=== PATIENT | male | born 1965 | race Caucasian/White ===

== ENCOUNTER 2020-02-04 16:11 | Emergency (ER) | payer OTHER, SELFPAY ==
--- NOTE | ~2020-02-04 | XR_ITS ---
EXAMINATION: XR hip RT min 3V w AP pelvis EXAM DATE: 02/04/2020 17:07 INDICATION: Initial encounter following injury, with pain of the pelvis, right hip. TECHNIQUE: Right hip frontal, crosstable lateral and 'frog-leg' projections for interpretation. Front al projection pelvis. There is no prior study for comparison. FINDINGS: Smooth right hip femoral head contour, no radiographic evidence of avascular necrosis. The re is mild symmetric bilateral hip primary osteoarthritis. There are no acute fractures or dislocatio ns identified. There is no subcutaneous gas. The soft tissue is unremarkable. There are no radiop aque foreign bodies. IMPRESSION: 1. Pelvis, right hip exam without acute osseous findings. 2. Mild hip osteoarthritis. Reviewed, dictated and finalized at location A.
[2020-02-04 16:15] VITALS: BP 123/74; PULSE 77; RESP 18; TEMP 37.4; O2SAT 98
--- NOTE | 2020-02-04 16:57 | ED.LOWEXIN ---
HPI - Extremity Injury (Lower) General Chief Complaint: Extremity Injury, Lower Stated Complaint: Hip pain Time Seen by Provider: 02/04/20 16:31 Source: patient Mode of arrival: ambulatory Limitations: no limitations History of Present Illness HPI Narrative: This is a 54-year-old male that presents the emergency department for right hip pain after an injury today. Reports he was pushing a lawnmower back onto a truck and all of a sudden felt a pop in his right hip. Reports since he has had increasing pain in this area. Reports he took ibuprofen this morning with little relief. Denies back pain, decreased range of motion, numbness, or weakness. Related Data Home Medications Medication Instructions Recorded Confirmed alirocumab [Praluent Pen] 75 mg SUBCUT MONTHLY 08/25/19 11/30/19 aspirin 81 mg DAILY 08/25/19 11/30/19 atorvastatin 80 mg DAILY 08/25/19 11/30/19 ezetimibe 10 mg DAILY 08/25/19 11/30/19 metoprolol tartrate 25 mg DAILY 08/25/19 11/30/19 Allergies Allergy/AdvReac Type Severity Reaction Status Date / Time No Known Allergies Allergy Verified 02/04/20 17:51 Review of Systems Review of Systems: Narrative: CONSTITUTIONAL: Denies fever MUSCULOSKELETAL: Reports joint pain and myalgia. Denies back pain NEUROLOGIC: Denies numbness, or weakness. All systems reviewed & are unremarkable except as noted in HPI and below PMFSH Past Medical History Medical History (Updated 02/04/20 @ 18:20 by Natalie Morton PA-C) Allergies Asthma BMI 28.0-28.9,adult Colon cancer screening Coronary artery disease Heart disease Hyperlipidemia LDL goal <70 Loud snoring Mild asthma Nocturnal dyspnea Prostate cancer screening Seasonal allergies Sleep apnea Surgical History Surgical History (Updated 11/30/19 @ 18:37 by Russel Rangel PA-C) H/O four vessel coronary artery bypass graft History of foot surgery History of open heart surgery Family History Family History (Updated 11/30/19 @ 15:55 by Dread Crowder CMA) Father Heart disease Acute myocardial infarction Social History Social History (Updated 11/30/19 @ 15:55 by Dread Crowder CMA) Smoking status: Never smoker Alcohol intake: current Drinks per week: 6 Substance use: never Gender identity (if verbalized by the patient): Male Exam Narrative: Exam Narrative: GENERAL: Well-appearing, well-nourished, and in no acute distress. HEAD: Normocephalic, atraumatic. EYES: EOMI. CHEST: Clear to auscultation. No respiratory distress. No wheezes rales or rhonchi HEART: Regular rate and rhythm. No murmur heard. Normal peripheral pulses. EXTREMITIES: Normal range of motion. No edema or obvious deformity. Strength equal in bilateral lower extremities (5/5). Tender palpation of the right lateral hip musculature SKIN: Warm, dry, no rash. NEURO: No focal deficits. Alert and oriented x3. PSYCH: Normal mood and affect Course Vital Signs Vital signs: Vital Signs Temperature 99.4 F 02/04/20 16:15 Pulse Rate 77 02/04/20 16:15 Respiratory Rate 18 02/04/20 16:15 Blood Pressure 123/74 02/04/20 16:15 Pulse Oximetry 98 02/04/20 16:15 Temperature 99.4 F 02/04/20 16:15 Pulse Rate 77 02/04/20 16:15 Respiratory Rate 18 02/04/20 16:15 Blood Pressure 123/74 02/04/20 16:15 Pulse Oximetry 98 02/04/20 16:15 MDM - Extremity Injury (Lower) MDM Narrative Medical decision making narrative: Patient presents the emergency department for right hip pain after an injury today. Right hip/pelvis x-ray is without acute findings. Patient is able to ambulate. He is tender to palpation of the tensor fasciae [place]. Patient was instructed on care of hip strain. He was given crutches for comfort. He is to follow up with orthopedics. He was given warnings to return to the ER Imaging Data Radiologist's impression: ITS Impressions Hip/Pelvis X-Ray 02/04/20 17:17 IMPRESSION: 1. Pelvis, right hip exam without acute osseous f
[2020-02-04] MEDS: KETOROLAC (*BKC) 60 MG/2 ML VIAL IM (17:10)
--- NOTE | 2020-02-04 18:35 | PC.NURSE ---
Patient was provided with hands on crutch training. He was able to properly return demonstrate safe use of the crutches. He had no questions for me regarding crutch training.
[2020-02-04 18:50] VITALS: BP 131/69; PULSE 79; RESP 16; TEMP 36.7; O2SAT 99
== END 2020-02-04 18:50 | disposition home or self-care (01) ==
PROVIDERS: Emergency Provider Emergency Medicine; PCP Physician Assistant
DX: S76.011A Strain of muscle, fascia and tendon of right hip, initial encounter (principal); J45.909 Unspecified asthma, uncomplicated; I25.10 Atherosclerotic heart disease of native coronary artery without angina pectoris; E78.5 Hyperlipidemia, unspecified; G47.30 Sleep apnea, unspecified; M16.11 Unilateral primary osteoarthritis, right hip; X50.9XXA Other and unspecified overexertion or strenuous movements or postures, initial encounter
CPT/HCPCS: 73502; 96372; 99283; J1885

== ENCOUNTER 2020-09-29 15:47 | Emergency (ER) | payer OTHER, SELFPAY ==
--- NOTE | ~2020-09-29 | XR_ITS ---
XR chest 2V DATE: 09/29/2020 16:15 INDICATION: Chest pain. Shortness of breath, dizziness. TECHNIQUE: PA and lateral views COMPARISON: 09/17/2018 AP and lateral chest FINDINGS: Status post sternotomy and probable coronary artery bypass graft surgery. Normal heart size . No hilar or mediastinal enlargement. No pulmonary infiltrate or consolidation, pleural effusion or pulmonary vascular congestion or pneumo thorax. IMPRESSION: Status post sternotomy No active cardiopulmonary disease Reviewed, dictated and finalized at location A. T TAILER
[2020-09-29 15:55] VITALS: BP 176/94; PULSE 76; RESP 18; TEMP 36.8; O2SAT 97
--- NOTE | 2020-09-29 15:55 | ECG_ITS ---
Measurements Intervals [place] Rate: 76 P: 20 MS: 116 QRS: 92 QRSD: 100 T: 37 QT: 376 QTc: 424 Interpretive Statements SINUS RHYTHM WITH SHORT MS INTERVAL VENTRICULAR PREMATURE COMPLEX RIGHT AXIS DEVIATION INCOMPLETE RIGHT BUNDLE BRANCH BLOCK BASELINE ARTIFACT- I, III, AVR, AVL BORDERLINE ECG Electronically Signed On 09-29-2020 16:07:46 POLICY WRITER by Maninder Foster D.O.
[2020-09-29 16:04] VITALS: PULSE 76
[2020-09-29 16:07] LABS: Basophils Absolute Auto 0.1 K/mm3 (0.0-0.1); Basophils Percent Auto 0.6 % (0.2-1.2); Eosinophils Absolute Auto 0.2 K/mm3 (0-0.3); Eosinophils Percent Auto 2.4 % (0-4.4); Hematocrit 47.2 % (42.0-52.0); Hemoglobin 16.1 g/dL (14.0-18.0); Immature Granulocyte Absolute 0.03 K/mm3 (0.00-0.031); Immature Granulocyte Percent A 0.4 % (0-0.5); Lymphocytes Absolute Auto 2.44 K/mm3 (0.9-3.2); Mean Corpuscular HGB Conc 34.1 g/dl (32-36); Mean Corpuscular Hemoglobin 30.8 pg (26-34); Mean Corpuscular Volume 90.2 fl (80-100); Mean Platelet Volume 10.2 fl (7.4-10.4); Monocytes Absolute Auto 0.8 K/mm3 (0.1-0.6); Monocytes Percent Auto 10.4 % (2.6-8.5); Neutrophils Absolute Auto 4.3 K/mm3 (1.3-6.7); Neutrophils Percent Auto 55.2 % (45.5-73.1); Platelet Count Result 198 k/mm3 (150-375); Red Blood Count 5.23 M/mm3 (4.6-6.20); Red Cell Distribution Width 14.3 % (11.5-14.5); White Blood Count 7.9 K/mm3 (4.5-10.0)
[2020-09-29 16:17] LABS: INR 0.9; Prothrombin Time 13.2 Seconds (11.1-14.7)
[2020-09-29 16:19] LABS: Anion Gap 5 mmol/L (8-16); Blood Urea Nitrogen 19 mg/dL (9-20); Calcium 8.8 mg/dL (8.4-10.2); Carbon Dioxide 22 mmol/L (22-30); Chloride 110 mmol/L (98-107); Estimated CRCL calculation 92 ml/min; Estimated Glomerular Filt Rate > 60; Glucose 107 mg/dL (75-110); Potassium 4.4 mmol/L (3.4-5.0); Sodium 137 mmol/L (137-145)
[2020-09-29 16:31] LABS: Troponin I < 0.012 ng/mL (0.000-0.034)
[2020-09-29 16:50] VITALS: BP 124/88; PULSE 70; RESP 18; O2SAT 96
[2020-09-29] MEDS: ASPIRIN 81 MG CHEWABLE TABLET 324 MG PO (16:50)
[2020-09-29 18:44] VITALS: BP 136/78; PULSE 64; RESP 14; O2SAT 95
[2020-09-29] MEDS: LORazepam INJ (*CRX) 2 MG/ML VIAL 1 MG IV PUSH (19:12)
[2020-09-29 19:15] LABS: Troponin I < 0.012 ng/mL (0.000-0.034)
--- NOTE | 2020-09-29 19:23 | ED.CHESTPAIN ---
HPI - Chest Pain General Chief Complaint: Chest Pain Stated Complaint: Dizzy, Arm Tingling Time Seen by Provider: 09/29/20 16:30 Source: patient Mode of arrival: ambulatory Limitations: no limitations History of Present Illness HPI narrative: 54-year-old male He is about 15 years old from a four-vessel bypass He has hypertension and is on pretty intensive cholesterol-lowering regimen including Praluent He usually goes for a run walk a couple times a week and has never had any trouble with these most recently about 10 days ago, he took off because of poor weather lately He comes to the ER today because on his last 2 days off which were Thursday and today, he is felt dizzy which she describes as a closed-end feeling, and a soreness in his left arm This is lasted most of the day today and he also describes feeling pretty while and anxious On the days in the interim when he has worked he really has not had any symptoms at all Not short of breath no diaphoresis no palpitations no nausea or vomiting no fever no swelling MD complaint: chest heaviness Related Data Home Medications Medication Instructions Recorded Confirmed alirocumab [Praluent Pen] 75 mg SUBCUT MONTHLY 08/25/19 11/30/19 aspirin 81 mg DAILY 08/25/19 11/30/19 atorvastatin 80 mg DAILY 08/25/19 11/30/19 ezetimibe 10 mg DAILY 08/25/19 11/30/19 metoprolol tartrate 25 mg DAILY 08/25/19 11/30/19 Allergies Allergy/AdvReac Type Severity Reaction Status Date / Time No Known Allergies Allergy Verified 09/29/20 16:01 Review of Systems Review of Systems: All systems reviewed & are unremarkable except as noted in HPI and below Constitutional: Constitutional: Denies chills, Reports fatigue, Denies fever(s), Denies headache(s) and Denies weakness Eyes: Eyes: Reports no additional eye complaints and Denies change in vision ENT: Denies headache(s), Denies epistaxis, Denies nasal congestion and Denies sore throat Cardiovascular: Cardiovascular: Reports chest pain, Denies leg edema, Denies palpitations and Denies dyspnea Respiratory: Respiratory: Denies cough, Denies dyspnea and Denies wheezing Gastrointestinal: Gastrointestinal: Denies abdominal pain, Denies diarrhea, Denies nausea and Denies vomiting Genitourinary: Genitourinary: Denies hematuria, Denies dysuria and Denies urinary frequency Musculoskeletal: Musculoskeletal: Denies deformity, Denies arthralgias, Denies joint swelling, Denies muscle weakness and Denies numbness Integumentary/Breasts: Skin/Breast: Denies rash and Denies wounds Neurologic: Denies headache(s), Denies focal weakness, Denies numbness and Denies weakness Psychiatric: Psychiatric: Reports no additional psychiatric complaints and Reports anxiety Endocrine: Endocrine: Denies fatigue and Denies palpitations Hematologic/Lymphatic: Hematologic/Lymphatic: Denies easy bleeding and Denies easy bruising Allergic/Immunologic: Allergic/Immunologic: Denies wheezing PMFSH Past Medical History Medical History (Updated 09/29/20 @ 19:37 by Curtis Yates MD) Allergies Asthma BMI 28.0-28.9,adult Colon cancer screening Coronary artery disease Heart disease Hyperlipidemia LDL goal <70 Loud snoring Mild asthma Nocturnal dyspnea Prostate cancer screening Seasonal allergies Sleep apnea Surgical History Surgical History (Updated 11/30/19 @ 18:37 by Russel Rangel PA-C) H/O four vessel coronary artery bypass graft History of foot surgery History of open heart surgery Family History Family History (Updated 11/30/19 @ 15:55 by Dread Crowder CMA) Father Heart disease Acute myocardial infarction Social History Social History (Updated 11/30/19 @ 15:55 by Dread Crowder CMA) Smoking status: Never smoker Alcohol intake: current Drinks per week: 6 Substance use: never Gender identity (if verbalized by the patient): Male Exam Const: General: no acute distress, well developed, alert and awake Nutri
[2020-09-29 19:59] VITALS: BP 111/71; PULSE 62; RESP 20; O2SAT 95
[2020-09-29 20:06] VITALS: TEMP 36.5
== END 2020-09-29 20:07 | disposition home or self-care (01) ==
PROVIDERS: General Practice; Emergency Provider Emergency Medicine; PCP Physician Assistant
DX: F41.9 Anxiety disorder, unspecified (principal); I25.10 Atherosclerotic heart disease of native coronary artery without angina pectoris; E78.5 Hyperlipidemia, unspecified; J45.909 Unspecified asthma, uncomplicated; G47.30 Sleep apnea, unspecified; I11.9 Hypertensive heart disease without heart failure; Z95.1 Presence of aortocoronary bypass graft; I49.3 Ventricular premature depolarization; I45.10 Unspecified right bundle-branch block; Z79.82 Long term (current) use of aspirin; R07.9 Chest pain, unspecified
CPT/HCPCS: 36415; 71046; 80048; 84484; 85025; 85610; 85730; 93005; 96374; 99284; A9270; J2060

== ENCOUNTER 2021-12-07 12:20 | Emergency (ER) | payer OTHER, SELFPAY ==
[2021-12-07 12:30] VITALS: BP 124/76; PULSE 80; RESP 18; TEMP 36.8; O2SAT 99
--- NOTE | 2021-12-07 12:34 | ED.URI ---
HPI - URI/Sore Throat General Chief Complaint: Upper Respiratory Infection Stated Complaint: Cough,Shortness of Breath Time Seen by Provider: 12/07/21 12:34 Source: patient Mode of arrival: ambulatory Limitations: no limitations History of Present Illness HPI Narrative: Higinio conrad a 55 yo male with PMH of asthma, high cholesterol, HTN, who comes to [facility] who comes with dry cough, not feeling well, fatigue. At influenza a 3 weeks ago, but knew it using rescue inhaler too much Related Data Home Medications Medication Instructions Recorded Confirmed aspirin 81 mg DAILY 08/25/19 12/07/21 atorvastatin 80 mg DAILY 08/25/19 12/07/21 ezetimibe 10 mg DAILY 08/25/19 12/07/21 metoprolol tartrate 25 mg DAILY 08/25/19 12/07/21 evolocumab 140 mg/mL subcutaneous 140 mg SUBCUT ONCE 04/03/21 12/07/21 pen injector mometasone-formoterol [Dulera] INHALATION 12/07/21 12/07/21 Allergies Allergy/AdvReac Type Severity Reaction Status Date / Time No Known Allergies Allergy Verified 12/07/21 12:37 Review of Systems Review of Systems: CONSTITUTIONAL: Denies fever, chills, sweats. EYES: Denies visual changes, redness, discharge. ENT: Denies rhinorrhea, has congestion, sore throat, otalgia. CARDIOVASCULAR: Denies chest pain, palpitations, edema. RESPIRATORY: Denies dyspnea, wheezing, mild dry cough GASTROINTESTINAL: Denies abdominal pain, nausea, vomiting, diarrhea. GENITOURINARY: Denies dysuria, hematuria, abnormal discharge SKIN: Denies rash or itching. NEUROLOGIC: Denies numbness, or focal weakness. PSYCHIATRIC: Denies anxiety or depression. [facility] Past Medical History Medical History Allergies Asthma BMI 28.0-28.9,adult Colon cancer screening Coronary artery disease Heart disease Hyperlipidemia LDL goal <70 Loud snoring Mild asthma Nocturnal dyspnea Prostate cancer screening Seasonal allergies Sleep apnea Surgical History Surgical History H/O four vessel coronary artery bypass graft History of foot surgery History of open heart surgery Family History Family History Father Heart disease Acute myocardial infarction Social History Social History Smoking status: Never smoker Alcohol intake: current Drinks per week: 6 Alcohol use details: Beer Substance use: never Gender identity (if verbalized by the patient): Male Comments At time of signature, I agree with nursing past medical, surgical, social and family history. There is no relevant family history pertinent to the presenting complaint. Exam Narrative: GENERAL: This is a well-nourished, well-developed patient, in mild distress. HEAD: normocephalic, atraumatic. EYES: Sclera clear/white. Vision is grossly intact. EARS: External ears normal, auditory canals clear and without drainage, TMs normal without perforation. Hearing grossly intact. NOSE: External nose normal without nasal discharge, nares without redness, no rhinorrhea. THROAT: Mucous membranes moist, posterior pharynx pink NECK: Neck supple, non-tender CARDIOVASCULAR: Regular rate and rhythm without murmurs, gallops, or rubs. RESPIRATORY: [place] course to auscultation. Breath sounds equal bilaterally. No wheezes, rales, or rhonchi. GASTROINTESTINAL: Abdomen soft, non-tender, SKIN: warm, intact with no suspicious lesions or rash, good texture and turgor. NEURO: awake, alert, and oriented to person, place and time. There were no obvious focal neurologic abnormalities. Steady gait EXTREMITIES: Normal range of motion. BACK: Nontender without deformity Course Course Emergency Course: Patient comes with not feeling well and cough for the last week Based on exam we will treat for bronchitis with Zithromax, steroids, Tessalon Perles Level of Care: Expr
== END 2021-12-07 13:07 | disposition home or self-care (01) ==
PROVIDERS: Emergency Provider Nurse Practitioner; PCP Family Medicine
DX: J40 Bronchitis, not specified as acute or chronic (principal); E78.5 Hyperlipidemia, unspecified; G47.30 Sleep apnea, unspecified; J45.909 Unspecified asthma, uncomplicated; Z95.1 Presence of aortocoronary bypass graft
CPT/HCPCS: 99213; G0463

== ENCOUNTER 2022-04-12 07:09 | Outpatient (CLI) | payer OTHER, SELFPAY ==
[2022-04-12 08:15] LABS: Cholesterol 211 mg/dL (0-200); HDL Direct 69 mg/dL; Triglycerides 81 mg/dL (<150)
[2022-04-12 08:28] LABS: LDL Cholesterol Direct 113 mg/dL
== END 2022-04-12 07:10 | disposition home or self-care (01) ==
LOC: ANHLAB 07:12
PROVIDERS: PCP Family Medicine; Visit Provider Internal Medicine Cardiovascular Disease
DX: E78.5 Hyperlipidemia, unspecified (principal)
CPT/HCPCS: 36415; 80061

== ENCOUNTER 2022-06-24 09:28 | Outpatient (CLI) | payer OTHER, SELFPAY ==
[2022-06-24 10:20] LABS: Cholesterol 127 mg/dL (0-200); HDL Direct 62 mg/dL; Triglycerides 96 mg/dL (<150)
[2022-06-24 10:32] LABS: LDL Cholesterol Direct 44 mg/dL
== END 2022-06-24 09:29 | disposition home or self-care (01) ==
LOC: ANHLAB 09:30
PROVIDERS: PCP Family Medicine; Visit Provider Nurse Practitioner Adult Health
DX: E78.5 Hyperlipidemia, unspecified (principal)
CPT/HCPCS: 36415; 80061

== ENCOUNTER 2023-12-09 18:11 | Emergency (ER) | payer OTHER, BC, SELFPAY ==
[2023-12-09 18:24] VITALS: BP 123/82; PULSE 88; RESP 16; TEMP 37.1; O2SAT 98
--- NOTE | 2023-12-09 18:34 | ED.URI ---
HPI - URI/Sore Throat General Chief Complaint: Upper Respiratory Infection Stated Complaint: Sinus Infection and Cough Time Seen by Provider: 12/09/23 18:24 Source: patient and RN notes reviewed Mode of arrival: ambulatory Limitations: no limitations History of Present Illness HPI Narrative: 57 y/o male with hx CAD, CABG presented for c/o cough and nasal congestion for 3 days. Slept most of today and did not eat. Cough keeping him up at night and reports subjective fever and body aches. States symptoms started with nasal congestion, he took mucinex without relief and then developed nausea and diarrhea. Today he took another Mucinex. Denies sob, wheezing, n/v/d. MD elicited complaint: cough Related Data Home Medications Medication Instructions Recorded Confirmed aspirin 81 mg tablet,delayed 81 mg DAILY 08/25/19 12/09/23 release atorvastatin 80 mg tablet 80 mg DAILY 08/25/19 12/09/23 ezetimibe 10 mg tablet 10 mg DAILY 08/25/19 12/09/23 metoprolol tartrate 25 mg tablet 25 mg DAILY 08/25/19 12/09/23 evolocumab 140 mg/mL subcutaneous 140 mg subcut DAILY 04/03/21 12/09/23 pen injector (Repatha SureClick) Allergies Allergy/AdvReac Type Severity Reaction Status Date / Time No Known Allergies Allergy Verified 12/09/23 18:15 Review of Systems Review of Systems: CONSTITUTIONAL: Endorses malaise, chills, sweats, fever EYES: Denies visual changes, redness, or discharge ENT: Reports rhinorrhea, congestion, denies sinus pain, otalgia, sore throat CARDIOVASCULAR: Denies chest pain, palpitations, edema RESPIRATORY: Reports cough, post nasal drainage. Denies dyspnea GASTROINTESTINAL: Denies abdominal pain, nausea, vomiting, diarrhea SKIN: Denies rash or itching MUSCULOSKELETAL: Endorses myalgia PMFSH Past Medical History Medical History Allergies Asthma BMI 28.0-28.9,adult Colon cancer screening Coronary artery disease Heart disease Hyperlipidemia LDL goal <70 Loud snoring Mild asthma Nocturnal dyspnea Prostate cancer screening Seasonal allergies Sleep apnea Surgical History Surgical History H/O four vessel coronary artery bypass graft History of foot surgery History of open heart surgery Family History Family History Father Heart disease Acute myocardial infarction Social History Social History Smoking status: Never smoker Second hand tobacco smoke exposure: No Alcohol intake: current Drinks per week: 6 Alcohol use details: Beer Substance use: never Substance use type: does not use Lack of Transportation: No Lack of Food: Never True Current Housing: I Have Housing Concerned About Future Housing: No Difficulty Paying Gas/Electric Bills: No Difficulty Paying for Meds: No Currently Unemployed: No Education: High School Diploma/GED Difficulty w/ Childcare or Family Care: No Living arrangements: with family Gender identity (if verbalized by the patient): Male Sexual Orientation (if Verbalized by the Patient): Straight or Heterosexual Spiritual care concerns: No Agree to blood products: Yes Exam Narrative: GENERAL: mildly Ill-appearing, nontoxic no acute distress. EYES: PERRLA, conjunctivae clear ENT: Mucous membranes moist. TM pearly woods with dull light reflex bilaterally; no tragal tenderness. Oropharynx not erythematous without lesions or exudate, no drooling, no hoarseness, no trismus, uvula midline. No tripod positioning, muffled voice, soft palate or pharyngeal wall bulging NECK: Supple. No lymphadenopathy CHEST: Clear to auscultation, breath sounds equal. 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 No wheezing, rhonchi, rales, or stridor. No respiratory distress, speaks in full sentences. HEART: Regular rate and rhythm. No murmur heard. SKIN: [place]
== END 2023-12-09 19:01 | disposition home or self-care (01) ==
PROVIDERS: Emergency Provider Nurse Practitioner Family; PCP Family Medicine
DX: J40 Bronchitis, not specified as acute or chronic (principal); Z20.822 Contact with and (suspected) exposure to COVID-19; J45.909 Unspecified asthma, uncomplicated; I25.10 Atherosclerotic heart disease of native coronary artery without angina pectoris; E78.5 Hyperlipidemia, unspecified; Z95.5 Presence of coronary angioplasty implant and graft; Z79.82 Long term (current) use of aspirin
CPT/HCPCS: 87426; 87804; 99213; G0463

== ENCOUNTER 2023-12-18 13:51 | Emergency (ER) | payer OTHER, BC, SELFPAY ==
--- NOTE | ~2023-12-18 | XR_ITS ---
EXAMINATION: XR chest 2V DATE: 12/18/2023 14:20 INDICATION: Cough and shortness of breath TECHNIQUE: PA and lateral views of the chest were obtained. COMPARISON: None FINDINGS: Calcified nodule at the right lower lung zone consistent with old granulomatous disease. No other air space opacities, pulmonary edema, pleural effusion or pneumothorax. The cardiomediastinal silhouette is normal. Median sternotomy wires and mediastinal surgical clips are seen, likely from prior coronar y artery bypass grafting. IMPRESSION: 1. No acute cardiopulmonary disease. Reviewed, dictated and finalized at location A.
--- NOTE | 2023-12-18 13:53 | ED.URI ---
HPI - URI/Sore Throat General Chief Complaint: Upper Respiratory Infection Stated Complaint: Sinus Time Seen by Provider: 12/18/23 14:06 Source: patient, RN notes reviewed and old records reviewed Mode of arrival: ambulatory Limitations: no limitations History of Present Illness HPI Narrative: 58-year-old male returns to the [facility] after being seen on the , 9 days ago for the same symptoms. Patient was prescribed Tessalon Perles and a Medrol Dosepak. Patient reports not being any better, patient states that he is feeling worse. At that time per medical record symptoms have been going on 3 days. Patient states that his cough is way worse, concern for pneumonia. Has a history cardiac issues, cardiac surgery and asthma. States he is now having worsening sinus pain and pressure, a congested nose. States that he does take allergy medication as well as use Flonase daily. States he tried calling his primary care provider and has an appointment on the 24 of December Onset (ago): day(s) (12) Treatments prior to arrival: cold medicine Related Data Home Medications Medication Instructions Recorded Confirmed aspirin 81 mg tablet,delayed 81 mg DAILY 08/25/19 12/18/23 release atorvastatin 80 mg tablet 80 mg DAILY 08/25/19 12/18/23 ezetimibe 10 mg tablet 10 mg DAILY 08/25/19 12/18/23 metoprolol tartrate 25 mg tablet 25 mg DAILY 08/25/19 12/18/23 evolocumab 140 mg/mL subcutaneous 140 mg subcut DAILY 04/03/21 12/18/23 pen injector (Repatha SureClick) Allergies Allergy/AdvReac Type Severity Reaction Status Date / Time No Known Allergies Allergy Verified 12/18/23 13:52 Review of Systems Review of Systems: All systems reviewed & are unremarkable except as noted in HPI and below Constitutional: Constitutional: Reports as per HPI, Reports body ache(s), Reports fatigue and Reports lethargy Eyes: Eyes: Reports no additional eye complaints ENT: Reports as per HPI and Reports nasal congestion Cardiovascular: Cardiovascular: Reports no additional cardiovascular complaints, Denies chest pain, Denies claudication and Denies leg edema Respiratory: Respiratory: Reports as per HPI, Denies chest congestion, Reports cough and Reports dyspnea Gastrointestinal: Gastrointestinal: Reports no additional gastrointestinal complaints, Denies abdominal pain, Denies nausea and Denies vomiting Musculoskeletal: Musculoskeletal: Reports no additional musculoskeletal complaints Integumentary/Breasts: Skin/Breast: Reports system reviewed and no additional complaints, except as docu Neurologic: Reports system reviewed and no additional complaints, except as documented Psychiatric: Psychiatric: Reports no additional psychiatric complaints Allergic/Immunologic: Allergic/Immunologic: Reports no additional allergic/immunologic complaints PMFSH Past Medical History Medical History Allergies Asthma BMI 28.0-28.9,adult Colon cancer screening Coronary artery disease Heart disease Hyperlipidemia LDL goal <70 Loud snoring Mild asthma Nocturnal dyspnea Prostate cancer screening Seasonal allergies Sleep apnea Surgical History Surgical History H/O four vessel coronary artery bypass graft History of foot surgery History of open heart surgery Family History Family History Father Heart disease Acute myocardial infarction Social History Social History Smoking status: Never smoker Second hand tobacco smoke exposure: No Alcohol intake: current Drinks per week: 6 Alcohol use details: Beer Substance use: never Substance use type: does not use Lack of Transportation: No Lack of Food: Never True Current Housing: I Have Housing Concerned About Future Housing: No Difficulty Paying Gas/Elec
[2023-12-18 14:00] VITALS: BP 120/70; PULSE 93; RESP 20; TEMP 37.7; O2SAT 97
== END 2023-12-18 14:41 | disposition home or self-care (01) ==
PROVIDERS: Emergency Provider Nurse Practitioner; PCP Family Medicine
DX: J40 Bronchitis, not specified as acute or chronic (principal); I25.10 Atherosclerotic heart disease of native coronary artery without angina pectoris; E78.5 Hyperlipidemia, unspecified; J45.909 Unspecified asthma, uncomplicated; Z95.5 Presence of coronary angioplasty implant and graft; Z79.82 Long term (current) use of aspirin
CPT/HCPCS: 71046; 99213; G0463